=== PATIENT | female | born 1980 | race Caucasian/White ===

== ENCOUNTER 2021-09-18 00:46 | Inpatient (IN) | payer OTHER ==
[2021-09-18 01:11] VITALS: BMI 27.4
[2021-09-18] MEDS ORDERED: SODIUM CHLORIDE 0.9% 500 ML INFUS.BAG IV ONE (01:41)
[2021-09-18] MEDS ORDERED: OXYMETAZOLINE 0.05% NASAL SOLUTION 15 ML BOTTLE NS ONE ×2 (01:41→03:41)
[2021-09-18 02:06] LABS: BASO % 0.6 % (0-2.0); EOS % 1.2 % (0-4.5); HEMATOCRIT 21.6 % (32.4-45.2); HEMOGLOBIN 7.3 GM/dL (10.7-15.3); LYMPH % 20.1 % (8-40); MCH 30.1 pg (25.7-33.7); MCHC 33.9 g/dl (32.0-36.0); MEAN CELL VOLUME 88.6 fl (80-96); MEAN PLT VOLUME 7.1 fl (7.5-11.1); MONO % 7.3 % (3.8-10.2); NEUT % 70.8 % (42.8-82.8); PLATELET COUNT 281 10^3/uL (134-434); RBC 2.44 M/mm3 (3.60-5.2); RDW 13.2 % (11.6-15.6); WHITE BLOOD COUNT 13.2 K/mm3 (4.0-10.0)
[2021-09-18 02:24] LABS: ALBUMIN 2.9 g/dl (3.4-5.0); CALCIUM 7.8 mg/dL (8.5-10.1)
[2021-09-18 02:27] LABS: CREATININE 0.8 mg/dL (0.55-1.3)
[2021-09-18 02:29] LABS: BILIRUBIN,TOTAL 0.2 mg/dL (0.2-1)
[2021-09-18 02:32] LABS: INR 1.06 (0.83-1.09); PROTHROMBIN TIME (PATIENT) 12.2 SEC (9.7-13.0)
[2021-09-18 03:11] LABS: TOT PROT 5.3 g/dl (6.4-8.2)
[2021-09-18 05:42] LABS: PH,URINE 6.5 (5.0-8.0); URINE APPEARANCE CLEAR; URINE BILIRUBIN NEGATIVE (NEGATIVE); URINE COLOR YELLOW; URINE GLUCOSE (UA) NEGATIVE (NEGATIVE); URINE KETONE NEGATIVE (NEGATIVE); URINE LEUK ESTERASE NEGATIVE (NEGATIVE); URINE NITRITE NEGATIVE (NEGATIVE); URINE PROTEIN NEGATIVE (NEGATIVE)
[2021-09-18 18:08] VITALS: BP 107/66; PULSE 84; TEMP 98.8
[2021-09-18 18:12] LABS: HEMATOCRIT 23.5 % (32.4-45.2); MCH 29.7 pg (25.7-33.7); MEAN CELL VOLUME 87.4 fl (80-96); MEAN PLT VOLUME 6.7 fl (7.5-11.1); PLATELET COUNT 237 10^3/uL (134-434); RBC 2.69 M/mm3 (3.60-5.2); RDW 13.9 % (11.6-15.6); WHITE BLOOD COUNT 13.5 K/mm3 (4.0-10.0)
== END 2021-09-18 20:07 | disposition home or self-care (01) | DRG 663 ==
LOC: JER 00:46 → JERBED 03:33
PROVIDERS: ADMIT Internal Medicine; ATTEND Internal Medicine
PROC: 30233N1 Transfusion of Nonautologous Red Blood Cells into Peripheral Vein, Percutaneous Approach (ICD-10-PCS; principal; 2021-09-18)
DX: D64.9 Anemia, unspecified (principal); R04.0 Epistaxis; R55 Syncope and collapse; I95.89 Other hypotension; E78.5 Hyperlipidemia, unspecified; D72.829 Elevated white blood cell count, unspecified
CPT/HCPCS: 36415; 36430; 70450-TC; 71045-TC-FY; 80053; 81003; 82728; 82962; 83540; 83550; 84703; 85025; 85027; 85045; 85610; 86850; 86900; 86901; 86922; 87040; 87086; 93005; 93010; 99285-25; C9803-CS; P9058; U0003; U0005